=== PATIENT | female | born 1965 | race Caucasian/White ===

== ENCOUNTER 2017-01-05 13:47 | Emergency (ER) | payer OTHER ==
[~2017-01-05] VITALS: Ht 162.6 cm; Wt 82.4 kg
[~2017-01-05 13:47] MED LIST: BENTYL20 MG PO; CIPRO500 MG PO; CYCLOBENZAPRINE10 MG PO; CYMBALTA60 MG PO; FLAGYL500 MG PO; HYDROCODON-ACE1 EAC7 PO; NEXIUM40 MG PO; PREVACID30 MG PO; TYLENOL EXTRA500 MG PO; ZOFRAN4 MG PO
[2017-01-05 15:08] LABS: HEMATOCRIT 44.5 % (36.0-46.0); MCH 30.8 PG (29.0-34.0); MCHC 33.3 G/DL (30.0-36.0); MCV 92.7 FL (83-99); MEAN PLAT.VOLUME 10.6 uM^3 (9.5-12.4); PLATELET COUNT 291 K/uL (156-360); RBC DIS.WIDTH-CV 12.3 % (11.8-14.6); RBC DIS.WIDTH-SD 42.3 % (39-53); WHITE BLOOD COUNT 10.4 K/uL (4.1-10.2)
[2017-01-05 15:16] LABS: CHLORIDE 104 mEq/L (99-109); POTASSIUM 4.5 mEq/L (3.7-5.4); SODIUM 141 mEq/L (136-147)
[2017-01-05 15:19] LABS: GLUCOSE 98 mg/dL (70-99)
[2017-01-05 15:20] LABS: ANION GAP 12 MEQ/L (2-14)
[2017-01-05 15:21] LABS: TOTAL BILIRUBIN 0.4 mg/dL (0.0-1.0)
[2017-01-05 15:22] LABS: ALKALINE PHOSPHATASE 111 IU/L (3-129); GFR ESTIMATE (CALCULATED) > 59 mL/min/
[2017-01-05 15:22] LABS: ADD MIUA? NO; BILIRUBIN NEGATIVE; BLOOD NEGATIVE; COLOR YELLOW ((YELLOW)); GLUCOSE (STRIP) NEGATIVE; KETONES NEGATIVE; LEUKOCYTES NEGATIVE; NITRITE NEGATIVE; PROTEIN (STRIP) NEGATIVE; SPECIFIC GRAVITY 1.021 (1.000-1.030); UROBILINOGEN 0.2 MG/DL (0.2-1.0)
[2017-01-05 15:23] LABS: UREA NITROGEN (BUN) 18 mg/dL (9-23)
[2017-01-05] MEDS ORDERED: ZOFRAN ODT8 MG PO (16:20)
[2017-01-05] MEDS ORDERED: CIPRO500 MG PO (16:20)
[2017-01-05] MEDS ORDERED: FLAGYL500 MG PO (16:20)
[2017-01-05 16:42] VITALS: BP 115/76
== END 2017-01-05 16:43 | disposition home or self-care (01) ==
LOC: EME 13:47
PROVIDERS: Physician Assistant
DX: K57.92 Diverticulitis of intestine, part unspecified, without perforation or abscess without bleeding (principal); K21.9 Gastro-esophageal reflux disease without esophagitis; Z98.1 Arthrodesis status; F17.200 Nicotine dependence, unspecified, uncomplicated; Z88.0 Allergy status to penicillin; Z88.8 Allergy status to other drugs, medicaments and biological substances
CPT/HCPCS: 80053; 81003; 85027; 99281; 99284

== ENCOUNTER 2017-05-20 10:51 | Emergency (ER) | payer OTHER ==
[~2017-05-20] VITALS: Ht 162.6 cm; Wt 82.7 kg
[~2017-05-20 10:51] MED LIST changes: +COLACE100 MG PO; +MIRALAX119 GM PO; +ZOFRAN ODT8 MG PO
[2017-05-20 12:11] LABS: APPEARANCE CLEAR ((CLEAR)); BILIRUBIN NEGATIVE; BLOOD NEGATIVE; COLOR YELLOW ((YELLOW)); GLUCOSE (STRIP) NEGATIVE; KETONES NEGATIVE; LEUKOCYTES NEGATIVE; NITRITE NEGATIVE; PROTEIN (STRIP) NEGATIVE; SPECIFIC GRAVITY 1.011 (1.000-1.030); UROBILINOGEN 0.2 MG/DL (0.2-1.0)
[2017-05-20 12:37] VITALS: BP 145/95
== END 2017-05-20 12:38 | disposition home or self-care (01) ==
LOC: EME 10:51
PROVIDERS: Physician Assistant
DX: R03.0 Elevated blood-pressure reading, without diagnosis of hypertension (principal); K21.9 Gastro-esophageal reflux disease without esophagitis; F17.200 Nicotine dependence, unspecified, uncomplicated; Z98.1 Arthrodesis status; Z88.0 Allergy status to penicillin; Z88.5 Allergy status to narcotic agent; Z88.8 Allergy status to other drugs, medicaments and biological substances
CPT/HCPCS: 81003; 93005; 99281; 99284